=== PATIENT | female | born 1990 | race African-American/Black ===

== ENCOUNTER 2020-10-19 09:06 | Outpatient (REF) | payer OTHER, SELFPAY | END 2020-10-19 09:07 | disposition home or self-care (01) | LOC: HO.LAB 09:06 | PROVIDERS: Visit Provider Internal Medicine | DX: Z20.828 Contact with and (suspected) exposure to other viral communicable diseases (principal) | CPT/HCPCS: C9803; U0003 ==

== ENCOUNTER 2020-11-11 06:35 | Outpatient (REF) | payer OTHER, SELFPAY | END 2020-11-11 06:36 | disposition home or self-care (01) | LOC: HO.LAB 06:35 | PROVIDERS: Visit Provider Internal Medicine | DX: Z20.822 Contact with and (suspected) exposure to COVID-19 (principal) | CPT/HCPCS: 36415; C9803; U0003 ==

== ENCOUNTER 2020-11-17 16:44 | Emergency (ER) | payer OTHER, SELFPAY ==
--- NOTE | 2020-11-17 | ECG_ITS ---
Test Reason : CP Blood Pressure : / mmHG Vent. Rate : 081 BPM Atrial Rate : 081 BPM P-R Int : 188 ms QRS Dur : 076 ms QT Int : 372 ms P-R-T Axes : 048 019 006 degrees QTc Int : 432 ms Normal sinus rhythm Poor R progression anterior leads; probably normal variant vs lead position and less likely from prior infarct Nonspecific ST and T wave abnormality Borderline ECG When compared with ECG of 03-OCT-2018 09:23, T wave inversion more evident in Anterior leads Referred By: Generic ED Physician Electronically Signed By:KHADAR ORTIZ
[2020-11-17 17:22] VITALS: BP 143/86; PULSE 85; RESP 16; TEMP 37.2; O2SAT 99; BMI 40.6
--- NOTE | 2020-11-17 17:28 | XR_ITS ---
EXAMINATION: XR CHEST CLINICAL INFORMATION: Chest pain COMPARISON: Chest x-ray 10/03/2018 TECHNIQUE: Frontal view of the chest was obtained. FINDINGS: Cardiac silhouette is normal in size. The lungs are well aerated. There is no lobar consolidation. No pleural effusion or pneumothorax. XR/XR chest 1V IMPRESSION: Stable examination demonstrating no acute pulmonary pathology.
[2020-11-17 17:58] LABS: MANUAL DIFF FLAG NO
[2020-11-17 18:08] LABS: UPreg QC Valid YES; Urine Pregnancy NEGATIVE (NEGATIVE)
[2020-11-17 18:17] LABS: Basophils Percent Auto 0.3 % (0-2); Eosinophils Absolute Auto 0.1 X10*3/uL (0.0-0.4); Eosinophils Percent Auto 0.9 % (0-4); Hematocrit 36.2 % (37-47); Hemoglobin 12.5 g/dl (12.0-16.0); Imm Gran Abs Auto 0.02 X10*3/uL (0.00-0.03); Imm Gran Pct Auto 0.3 % (0.0-0.4); Lymphocytes Absolute Auto 3.2 X10*3/uL (1.2-4.9); Lymphocytes Percent Auto 48.8 % (20-40); Mean Corpuscular HGB Conc 34.5 g/dl (31.0-35.0); Mean Corpuscular Hemoglobin 31.3 pg (27.0-33.0); Mean Corpuscular Volume 90.5 fL (80-98); Mean Platelet Volume 10.1 fL (9.4-12.3); Monocytes Absolute Auto 0.5 X10*3/uL (0.1-1.2); Monocytes Percent Auto 8.2 % (2-11); Neutrophils Absolute Auto 2.7 X10*3/uL (2.0-8.3); Neutrophils Percent Auto 41.5 % (45-73); Platelet Count 400 X10*3/uL (160-400); Red Cell Distribution Width 11.9 % (11.0-16.0); White Blood Count 6.6 X10*3/uL (4.8-10.8)
[2020-11-17 18:28] LABS: Troponin-I High Sensitivity 8.8 ng/L (<3.5-17.0)
[2020-11-17 18:39] LABS: Influenza A PCR NEGATIVE (Negative); Influenza B PCR NEGATIVE (Negative); Resp Syncy Virus RNA Qual PCR NEGATIVE (Negative); SARS COV2 PCR INHOUSE NEGATIVE (Negative)
--- NOTE | 2020-11-17 18:39 | ED_ITS ---
HPI - Chest Pain General Chief Complaint: Chest Pain Stated Complaint: chest pain, pending covid test Time Seen by Provider: 11/17/20 18:07 Source: patient Mode of arrival: ambulatory Limitations: no limitations History of Present Illness HPI narrative: 30yoF c PMHx of DM, HTN and asthma presenting to the ED c c/o m id-sternal chest pain that started at 3am while asleep and woke her up her sleep then she reports she forced herself to sleep and when she woke up she did not feel the chest pain although around noon she started to feel the chest pain again in the midsternal area as she reports as ?pressure in sensation? and has been constant since 12 noon. She reports it is worse with deep breathing. Reports chest pain is radiating to her left chest/left shoulder/left scapula/left arm. Patient reports she has noticed some jaw pain and feeling that she fels as she has an upset stomach. Although denies any dizziness, headaches, changes in vision, fevers, chills, nausea/vomiting, palpitations, paresthesias, shortness of breath, abdominal pain, diarrhea or constipation or any other symptoms complaints or concerns at this time. Reports she is currently taking prenatals to attempt to get . Patient reports she is not currently at this time. Denies recent travel or sick contacts. Denies recent immobilization, history of cancer, recent surgery, OCP usage, history of DVT or PEs or hypercoagulation disorder that she is aware about. Denies any drug usage including cocaine. Denies any other symptoms complaints or concerns at this time. Related Data Previous Rx's Medication Instructions Recorded diazepam [Valium] 5 mg PO TID PRN #10 tab 11/17/20 Allergies Allergy/AdvReac Type Severity Reaction Status Date / Time lisinopril Allergy Cough Verified 11/17/20 17:27 mushrooms Allergy Unknown Swelling Uncoded 11/17/20 17:27 Review of Systems Review of Systems: Constitutional : No Weight loss, No Fever, No Chills, No Night Sweats, No Fatigue, No Malaise ENT/Mouth : No Hearing loss, No Ear Pain, No Nasal Congestion, No Sinus Pain, No Hoarseness, No sore throat, No Rhinorrhea, No Swallowing Difficulty Eyes: No Eye Pain, No Swelling, No Redness, No Foreign Body, No Discharge, No Vision Changes Cardiovascular : + Chest pain, No SOB, no Dyspnea on Exertion, No Orthopnea, No Edema, No extremity swelling, No Palpitations Respiratory : No Cough, No Sputum, No Wheezing, No Dyspnea Gastrointestinal : No Nausea, No Vomiting, No Diarrhea, No abdominal Pain, No Hematochezia, No Melena Genitourinary : No irregular bleeding, No Dysuria, No Urinary Frequency, No Hematuria, No Urinary Incontinence, No Urgency, No Flank Pain, No Urinary Flow Changes, No Hesitancy Musculoskeletal : No joint pain, No Myalgias, No Joint Swelling Skin : No Skin Lesions, No rash Neuro : No Weakness, No Numbness, No Paresthesias, No Loss of Consciousness, No Dizziness, No Headache Psych : No Anxiety/Panic, No Depression, No SI/HI/AH/VH Heme/Lymph: No Bruising, No Bleeding,No Lymphadenopathy Endocrine : No Polyuria, No Polydipsia, No Temperature Intolerance Yes all other systems are reviewed and are negative FORMERLY [facility], [facility] Past Medical History Attestation statement: The following information was validated with the patient. Medical History Asthma Diabetes HTN (hypertension) Social History Social History Alcohol intake: never Smoked in Last 30 Days: No Use of substances other than those prescribed or required for medical reasons: No Advance Directives: No Advance Directives Information Provided: No Physical Exam Vital Signs: Vital Signs: Last Vital Signs Temp 97.3 F 11/17/20 20:24 Pulse 87 11/17/20 20:24 Resp 14 11/17/20 20:24 BP 136/87 11/17/20 20:24 Pulse Ox 98 11/17/20 20:24 Body Mass Index 40.6 vital signs have been reviewed as normal and appeared to be correct. Blood pressure normal. Heart rate normal. Respiration rate normal. Temperature normal. Oxygen saturation normal. Appearance: Alert. Oriented X3. No acute distress. Head: Normal external exam. Normocephalic. Atraumatic. Eyes: PERRLA. EOMI. Conjunctiva and sclera normal. Eyelids normal. ENT: EAC normal. TM's Normal. Pharynx normal. Uvula midline. Moist mucous membranes. No trismus noted. No drooling noted. No muffled voice noted. Neck: Normal inspection. Neck supple. FROM. No adenopathy. Thyroid Normal. No meningeal signs. No neck mass noted. CVS: Normal heart rate and rhythm. Heart sound normal. No murmurs noted. Pulses normal throughout. Respiratory: No respiratory distress. Painless inspiration. Breath sounds normal. No wheezes/rales/rhonchi noted. Chest nontender. No accessory muscle usage noted or decreased air movement noted. Back: Full range of motion noted. Skin: Skin warm and dry. Normal skin color. Normal skin turgor. No rash es/lesions/lacerations noted. Extremities: No lower extremity edema. No calf tenderness noted. Extremities exhibit normal range of motion. Extremities nontender. Neuro: Oriented X 3. No motor deficit. No sensory deficit. Reflexes normal. Course Course Course Narrative: 17:42pm - 30yoF c PMHx of DM, HTN and asthma presenting to the ED c c/o mid-sternal chest pain that has been constant since 12 noon c Chest pain radiating to left chest/left shoulder/left arm/left scapula c associated jaw pain. Chest pain worsened with deep inspiration. - on exam patient is alert and oriented x3. Not in any acute distress. Mildly hypertensive at 143/86 otherwise all other vitals are within normal limits. - Plan: Labs, CXR, EKG, COVID/RSV/FLU swab then re-evaluate. Reevaluation(s) Reevaluation #1: - 1st troponin 8.8. 3 hours later 10.6 therefore negative delta. - including TSH level within normal limits. Urine negative. COVID/RSV/flu negative. - patient with atypical chest pain. Will DC home with symptomatic treatment along with instructions to return if any new or worsening symptoms to follow up with primary care provider and I will refer her to a matching machine operator and to return if any new or worsening symptoms. Patient understands agrees the plan. Time: 21:55 [facility] - Chest Pain Medical Records Data Attestation: I reviewed the patient's medical records. Lab Data Attestation: I reviewed the patient's lab results. Result diagrams: 11/17/20 17:42 11/17/20 18:54 Labs: Lab Results 11/17/20 11/17/20 11/17/20 Range/Units 17:42 17:42 17:42 WBC 6.6 (4.8-10.8) X10*3/uL RBC 4.00 L (4.20-5.50) X10*6/uL Hgb 12.5 (12.0-16.0) g/dl Hct 36.2 L (37-47) % MCV 90.5 (80-98) fL MCH 31.3 (27.0-33.0) pg MCHC 34.5 (31.0-35.0) g/dl RDW 11.9 (11.0-16.0) % Plt Count 400 (160-400) X10*3/uL MPV 10.1 (9.4-12.3) fL Immature Gran % (Auto) 0.3 (0.0-0.4) % Neut % (Auto) 41.5 L (45-73) % Lymph % (Auto) 48.8 H (20-40) % [place] % (Auto) 8.2 (2-11) % Eos % (Auto) 0.9 (0-4) % Baso % (Auto) 0.3 (0-2) % Lymph # (Auto) 3.2 (1.2-4.9) X10*3/uL [place] # (Auto) 0.5 (0.1-1.2) X10*3/uL Eos # (Auto) 0.1 (0.0-0.4) X10*3/uL Baso # (Auto) 0.0 (0.0-0.2) X10*3/uL Abs Immat Gran (auto) 0.02 (0.00-0.03) X10*3/uL Absolute Neuts (auto) 2.7 (2.0-8.3) X10*3/uL Absolute Nucleated RBC 0.000 (0.0-0.012) X10*3/uL Nucleated RBC % (auto) 0.0 (0.0-0.2) /100WBC PT (10.8-13.0) SEC INR (0.9-1.1) D-Dimer NG/ML Hold Blue Top Sodium (135-145) mmol/L Potassium (3.3-5.1) mmol/l Chloride (96-108) mmol/L Carbon Dioxide (22-29) mmol/L Anion Gap (12-20) BUN (9-16) mg/dL Creatinine (0.5-1.4) mg/dL Estim Creat Clear Calc Estimated GFR Random Glucose (60-115) mg/dL Calcium (8.4-10.2) mg/dL Troponin I High Sens 8.8 (<3.5-17.0) ng/L B-Natriuretic Peptide (<100) pg/mL TSH (0.32-4.0) uIU/mL Urine Test (NEGATIVE) Coronavirus (PCR) NEGATIVE (Negative) Influenza Type A (PCR) NEGATIVE (Negative) Influenza Type B (PCR) NEGATIVE (Negative) RSV RNA Qual (PCR) NEGATIVE (Negative) 11/17/20 11/17/20 11/17/20 Range/Units 17:42 17:42 17:42 WBC (4.8-10.8) X10*3/uL RBC (4.20-5.50) X10*6/uL Hgb (12.0-16.0) g/dl Hct (37-47) % MCV (80-98) fL MCH (27.0-33.0) pg MCHC (31.0-35.0) g/dl RDW (11.0-16.0) % Plt Count (160-400) X10*3/uL MPV (9.4-12.3) fL Immature Gran % (Auto) (0.0-0.4) % Neut % (Auto) (45-73) % Lymph % (Auto) (20-40) % [place] % (Auto) (2-11) % Eos % (Auto) (0-4) % Baso % (Auto) (0-2) % Lymph # (Auto) (1.2-4.9) X10*3/uL [place] # (Auto) (0.1-1.2) X10*3/uL Eos # (Auto) (0.0-0.4) X10*3/uL Baso # (Auto) (0.0-0.2) X10*3/uL Abs Immat Gran (auto) (0.00-0.03) X10*3/uL Absolute Neuts (auto) (2.0-8.3) X10*3/uL Absolute Nucleated RBC (0.0-0.012) X10*3/uL Nucleated RBC % (auto) (0.0-0.2) /100WBC PT (10.8-13.0) SEC INR (0.9-1.1) D-Dimer NG/ML Hold Blue Top Sodium (135-145) mmol/L Potassium (3.3-5.1) mmol/l Chloride (96-108) mmol/L Carbon Dioxide (22-29) mmol/L Anion Gap (12-20) BUN (9-16) mg/dL Creatinine (0.5-1.4) mg/dL Estim Creat Clear Calc Estimated GFR Random Glucose (60-115) mg/dL Calcium (8.4-10.2) mg/dL Troponin I High Sens TNP (<3.5-17.0) ng/L B-Natriuretic Peptide < 10 (<100) pg/mL TSH (0.32-4.0) uIU/mL Urine Test NEGATIVE (NEGATIVE) Coronavirus (PCR) (Negative) Influenza Type A (PCR) (Negative) Influenza Type B (PCR) (Negative) RSV RNA Qual (PCR) (Negative) 11/17/20 11/17/20 11/17/20 Range/Units 18:54 20:40 20:40 WBC (4.8-10.8) X10*3/uL RBC (4.20-5.50) X10*6/uL Hgb (12.0-16.0) g/dl Hct (37-47) % MCV (80-98) fL MCH (27.0-33.0) pg MCHC (31.0-35.0) g/dl RDW (11.0-16.0) % Plt Count (160-400) X10*3/uL MPV (9.4-12.3) fL Immature Gran % (Auto) (0.0-0.4) % Neut % (Auto) (45-73) % Lymph % (Auto) (20-40) % [place] % (Auto) (2-11) % Eos % (Auto) (0-4) % Baso % (Auto) (0-2) % Lymph # (Auto) (1.2-4.9) X10*3/uL [place] # (Auto) (0.1-1.2) X10*3/uL Eos # (Auto) (0.0-0.4) X10*3/uL Baso # (Auto) (0.0-0.2) X10*3/uL Abs Immat Gran (auto) (0.00-0.03) X10*3/uL Absolute Neuts (auto) (2.0-8.3) X10*3/uL Absolute Nucleated RBC (0.0-0.012) X10*3/uL Nucleated RBC % (auto) (0.0-0.2) /100WBC PT 11.6 (10.8-13.0) SEC INR 1.0 (0.9-1.1) D-Dimer < 200 NG/ML Hold Blue Top Y Sodium 138 (135-145) mmol/L Potassium 3.8 (3.3-5.1) mmol/l Chloride 100 (96-108) mmol/L Carbon Dioxide 27 (22-29) mmol/L Anion Gap 15 (12-20) BUN 11 (9-16) mg/dL Creatinine 0.73 (0.5-1.4) mg/dL Estim Creat Clear Calc 139.6 Estimated GFR > 60 Random Glucose 108 (60-115) mg/dL Calcium 9.1 (8.4-10.2) mg/dL Troponin I High Sens 10.6 (<3.5-17.0) ng/L B-Natriuretic Peptide (<100) pg/mL TSH 0.60 (0.32-4.0) uIU/mL Urine Test (NEGATIVE) Coronavirus (PCR) (Negative) Influenza Type A (PCR) (Negative) Influenza Type B (PCR) (Negative) RSV RNA Qual (PCR) (Negative) Imaging Data Chest x-ray: Attestation: I personally reviewed and interpreted this imaging study as follows: Radiologist's impression: FINDINGS: Cardiac silhouette is normal in size. The lungs are well aerated. There is no lobar consolidation. No pleural effusion or pneumothorax. XR/XR chest 1V IMPRESSION: Stable examination demonstrating no acute pulmonary pathology. ECG Data ECG #1: Attestation: I personally reviewed and interpreted this ECG as follows: ECG interpretation date: 11/17/20 ECG interpretation time: 17:14 Interpretation: Normal sinus rhythm with nonspecific ST changes although similar when compared to prior on 10/03/2018 Scores Heart Score History: -0- slightly suspicious ECG: -0- normal Age: -0- < or = 45 Risk factory: -2- 3 or more risk factors or treated atherosclerosis Troponin: -0- < or = normal limit Score: 2 Risk: 1.7% Discharge Plan Discharge Clinical Impression: Atypical chest pain Patient Disposition: Home, Self-Care Instructions: Chest Pain (ED), Cardiac Stress Test (DC), Nuclear Stress Test (DC), Stress Echocardiogram (DC) Additional Instructions: You should follow-up with her primary care provider. I gave you the number below for matching machine operator she should also follow up with them for a possible outpatient stress test I gave information about stress test as above. Return if any new or worsening symptoms. Prescriptions: New diazepam [Valium] 5 mg tablet 5 mg PO TID PRN (Reason: muscle spasm) Qty: 10 RF: 0 Referrals: Markos Torrez MD [Physician] - 2 days Physician,Unknown [Primary Care Provider] - 2 days (Your PCP) Stand Alone Forms: Work/School Release Print Language: Kiswahili
[2020-11-17 18:49] VITALS: BP 146/87; PULSE 87; RESP 20; TEMP 36.2; O2SAT 98
[2020-11-17 19:28] LABS: Anion Gap 15 (12-20); Blood Urea Nitrogen 11 mg/dL (9-16); Calcium 9.1 mg/dL (8.4-10.2); Carbon Dioxide 27 mmol/L (22-29); Chloride 100 mmol/L (96-108); Creatinine Clr Calc Pharmacy 139.6; Estimated Glomerular Filt Rate > 60; Glucose Random 108 mg/dL (60-115); Potassium 3.8 mmol/l (3.3-5.1); Sodium 138 mmol/L (135-145)
[2020-11-17] MEDS: Ketorolac Tromethamine 30 MG/ML VIAL IVPUSH (19:30)
[2020-11-17 19:34] LABS: B Type Natriuretic Peptide < 10 pg/mL (<100)
[2020-11-17 19:45] VITALS: BP 132/77; PULSE 85; RESP 16; O2SAT 99
[2020-11-17 20:24] VITALS: BP 136/87; PULSE 87; RESP 14; TEMP 36.3; O2SAT 98
[2020-11-17 20:53] LABS: Prothrombin Time 11.6 SEC (10.8-13.0)
[2020-11-17 20:56] LABS: D Dimer < 200 NG/ML
[2020-11-17 21:30] LABS: Hold Lt Blue - Possible Coag Y
[2020-11-17 21:50] LABS: Troponin-I High Sensitivity 10.6 ng/L (<3.5-17.0)
[2020-11-17] MEDS: diazePAM 5 MG TABLET PO (22:08)
== END 2020-11-17 22:14 | disposition home or self-care (01) ==
PROVIDERS: Physician Assistant Medical; Emergency Provider Emergency Medicine Emergency Medical Services
DX: R07.89 Other chest pain (principal); Z20.822 Contact with and (suspected) exposure to COVID-19; E11.9 Type 2 diabetes mellitus without complications; I10 Essential (primary) hypertension; J45.909 Unspecified asthma, uncomplicated
CPT/HCPCS: 0241U; 36415; 71045; 80048; 81025; 83880; 84443; 84484; 85025; 85379; 85610; 93005; 96374; 99284; J1885

== ENCOUNTER → 2020-11-25 11:32 | Outpatient (BNVA) | payer OTHER, SELFPAY | PROVIDERS: PCP Internal Medicine; Visit Provider Nurse Practitioner Family | DX: R07.2 Precordial pain (principal); I10 Essential (primary) hypertension; E11.9 Type 2 diabetes mellitus without complications; E66.9 Obesity, unspecified | CPT/HCPCS: 99202 ==

== ENCOUNTER → 2020-12-28 13:53 | Outpatient (REF) | payer OTHER, SELFPAY ==
--- NOTE | 2020-12-28 13:59 | CA_ITS ---
Transthoracic Echocardiogram Patient (Last, First, Middle): Sunny George, Gender: Female Date of : 1990 Age: 30 Procedure Date: 12/28/2020 Procedure Type: Transthoracic Echocardiogram Location: OP Height: 165.1 cm Weight: 111.13 kg BSA: 2.16 m2 Heart Rate: bpm BP: 136 / 80 mmHg Masonry Teacher: JODI Referring MD: Brandy Eckert FEED PREPARATION OPERATOR-Johan Symptoms: I10 - Essential (primary) hypertension Study Quality: Good ECG Rhythm: Sinus Conclusions: - The left ventricular systolic function is normal. The visually estimated ejection fraction is between 60-65%. - There is mildly increased left ventricular wall thickness. - No obvious valvular pathology seen on this study. Findings Left Ventricle Normal left ventricular cavity size. There is mildly increased left ventricular wall thickness. The left ventricular systolic function is normal. The visually estimated ejection fraction is between 60-65%. There is no evidence of regional wall motion abnormalities. Diastolic function is normal for age. Right Ventricle Normal right ventricular cavity size and systolic function. Atria Both atria are normal in size. Aortic Valve There is a normal trileaflet aortic valve. There is no aortic valve stenosis. There is trace (trivial) aortic valve regurgitation. Mitral Valve The mitral valve appears normal. There is trace mitral valve regurgitation. There is trace mitral valve stenosis. Pulmonic Valve The pulmonic valve was not well visualized. Tricuspid Valve Normal tricuspid valve structure. There is no tricuspid valve regurgitation. The pulmonary artery systolic pressure is normal. Great Vessels The aortic annulus, sinuses of valsalva, and asc aorta are normal in size. Venous The inferior vena cava is normal in size and collapses greater than 50% with inspiration. Pericardium/Pleural There is no evidence of pericardial effusion. Prior Study Comparison No prior study available for comparison. Recommendations, Care & Conclusions No obvious valvular pathology seen on this study. Measurements 2D Linear Measurements IVSd: 1.32 0.6-0.9/0.6-1.0 cm LVIDd: 3.98 3.9-5.3/4.2-5.9 cm LVIDd Index: 1.84 2.4-3.2/2.2-3.1 cm/m2 LVIDs: 2.53 2.0-3.6 cm LVPWd: 1.24 0.7-1.1 cm Ao Root: 2.70 2.1-3.5 cm LA Diam: 3.50 2.7-3.8/3.0-4.0 cm LAIDs Index: 1.62 1.5-2.3 cm/m2 LV Mass: 225.35 67-162/88-224 g LV Mass Index: 104.33 43-95/49-115 g/m2 LVOT Diam: 2.00 3.0+(-)1.3 cm 2D Systolic Function EF 4C: 63.50 >55% EF 2C: 62.00 >55% EF BiP: 63.60 >55% Mitral Valve MV Pk E: 0.89 MV PK A: 0.67 MV Decel Time: 204.00 E/A: 1.30 E'Lateral: 13.20 E'Medial: 9.86 E/E' Med: 9.00 E/E' Lat: 6.70 PHT: 60.00 MVA PHT: 3.67 Decel Pitt: 4.35 Aortic Valve AoV Pk Marcio: 1.82 AoV Mn Marcio: 1.06 AoV VTI: 0.33 AoV Pk Grad: 13.00 Aov Mn Grad: 6.00 BRENDA Cont.VTI: 2.53 LVOT LVOT Pk Marcio: 1.26 LVOT Mn Marcio: 0.93 LVOT VTI: 0.26 LVOT Pk Grad: 6.00 LVOT Mn Grad: 4.00 LVOT Diam: 2.00 LVOT Area: 3.14 Diastolic Function MV Pk E: 0.89 MV Pk A: 0.67 E/A: 1.30 E'Medial: 9.86 E/E' Med: 9.00 E' Laterial: 13.20 E/E' Lat: 6.70 Tricuspid Valve TR Pk Marcio: 1.82 TR Pk Grad: 13.00 RA Press: 3.00 RVSP: 16.00 Great Vessels Aorta Ao Root-2D: 2.70 2.0-3.7 cm Ao Asc: 2.90 2.1-3.4 cm Pulmonary Valve PV Pk Marcio: 1.61 Peak PV Grad: 10.00 Updated in Other Vendor System with Status of Final Lee Jose MD electronically signed on 12/29/2020 10:41:14 AM with status of Final
== END ==
LOC: HO.CARD 13:53
PROVIDERS: PCP Internal Medicine; Visit Provider Nurse Practitioner Family
DX: R07.2 Precordial pain (principal); I10 Essential (primary) hypertension; E66.9 Obesity, unspecified
CPT/HCPCS: 93306

== ENCOUNTER → 2021-01-04 09:51 | Outpatient (REF) | payer OTHER, SELFPAY ==
--- NOTE | 2021-01-04 09:59 | CA_ITS ---
Acquisition Time: 2021-01-04 10:30:02 Total Exercise Time: 00:06:57 Test Indications: SOB Medications: SEE CHART Protocol: ISIDRO Max HR: 173 BPM 87% of Pred: 198 BPM Max BP: 204/070 mmHG Max Work Load: 8.3 METS Exercise stress test using Isidro protocol, total of 6 min 57 sec. METS and TAPHR up to 87%. Pt tolerated well, denies any anginal sx. EKG without arrhythmias, no ischemic changes seen during exercise or in recovery. Hypertensive response to exercise. Test reviewed with Dr. Torrez. Referred By: Brandy Eckert Overread By:
== END ==
LOC: HO.CARD 09:51
PROVIDERS: Visit Provider Nurse Practitioner Family
DX: R07.2 Precordial pain (principal); I10 Essential (primary) hypertension; E66.9 Obesity, unspecified; E11.9 Type 2 diabetes mellitus without complications
CPT/HCPCS: 93016; 93017; 93018

== ENCOUNTER → 2021-01-13 11:23 | Outpatient (BNVA) | payer OTHER, SELFPAY | PROVIDERS: PCP Internal Medicine; Visit Provider Nurse Practitioner Family ==